=== PATIENT | female | born 1940 | race Caucasian/White ===

== ENCOUNTER 2021-08-04 14:13 | Inpatient (IN) | payer MEDICARE, BC ==
[~2021-08-04] VITALS: Ht 157.5 cm; Wt 72.0 kg
[2021-08-04] MEDS ORDERED: QUETIAPINE FUM100 M1 PO (15:32)
[2021-08-04] MEDS ORDERED: METFORMIN HYD1000 MG PO (15:33)
[2021-08-04] MEDS ORDERED: SYNTHROID0.05 MG PO (15:43)
[2021-08-04] MEDS ORDERED: NEURONTIN300 MG/CAP (15:44)
[2021-08-04] MEDS ORDERED: LEVEMIR FLEX100 U/ML SQ (15:45)
[2021-08-04] MEDS ORDERED: TRULICITY1.5 MG/0.5 SC (15:52)
[2021-08-04] MEDS ORDERED: FAMOTIDINE40 M1 PO (15:59)
[2021-08-04] MEDS ORDERED: RIVASTIGMINE1 EACH TD (16:00)
[2021-08-04] MEDS ORDERED: CELEXA 20MG20 MG/TA1 PO (16:04)
[2021-08-04] MEDS ORDERED: ATORVASTATIN CA40 MG PO (16:06)
[2021-08-04] MEDS ORDERED: CLOPIDOGREL75 M2 PO (16:06)
[2021-08-04] MEDS ORDERED: AMLODIPINE BES2.5 MG PO (16:08)
[2021-08-04] MEDS ORDERED: VITAMIN D21250 MCG PO (16:09)
[2021-08-04] MEDS ORDERED: ESTRADIOL42.5 GM VG (16:10)
[2021-08-04] MEDS ORDERED: FLUCONAZOLE150 MG PO (16:14)
[2021-08-04] MEDS ORDERED: LIDOCAINE 5%35.44 GM (16:15)
[2021-08-04] MEDS ORDERED: INSULIN AS100 UNIT/3 SQ (16:16)
[2021-08-04] MEDS ORDERED: LOW DOSE ASPIRI81 M1 PO (16:17)
[2021-08-04] MEDS ORDERED: ALPHA LIPOIC A600 MG PO (16:18)
[2021-08-04] MEDS ORDERED: CYANOCOBAL1000 MCG/1 IM (16:19)
[2021-08-04] MEDS ORDERED: ASACOL HD800 M1 PO (16:20)
[2021-08-04] MEDS ORDERED: SENNA8.6 M1 PO (16:21)
[2021-08-04 17:24] VITALS: BP 152/82
[2021-08-04 18:00] VITALS: BP 152/82
[2021-08-04 21:34] VITALS: BP 172/70
[2021-08-05 02:06] VITALS: BP 144/68
[2021-08-05 05:55] VITALS: BP 132/59
[2021-08-05 06:56] LABS: BASO # 0.03 K/mm3 (0.02-0.10); EOS # 0.17 K/mm3 (0.04-0.40); EOS % 2.5 % (1.0-5.0); HEMATOCRIT 32.7 % (37.0-47.0); HEMOGLOBIN 10.3 g/dL (12.5-16.0); LYMPH# 2.99 K/mm3 (1.50-4.00); MEAN CELL VOLUME 88 fl (78-100); MEAN CORPUSCULAR HEMOGLOBIN 28 pg (27-31); MEAN CORPUSCULAR HGB CONC 32 g/dL (33-37); MEAN PLATELET VOLUME 10.1 fl (7.4-10.4); MONO # 0.55 K/mm3 (0.20-0.80); NEU # 2.87 K/mm3 (1.40-6.50); PLATELET COUNT 269 K/mm3 (130-400); RED BLOOD COUNT 3.73 M/mm3 (4.10-5.30); RED CELL DISTRIBUTION WIDTH 14.6 % (11.5-14.5); WHITE BLOOD COUNT 6.8 K/mm3 (4.8-10.8)
[2021-08-05 07:39] LABS: ALBUMIN 2.9 g/dL (3.4-4.8); POTASSIUM 3.6 mmol/L (3.5-5.1)
[2021-08-05 07:41] LABS: TOTAL PROTEIN 5.8 g/dL (6.2-8.1)
[2021-08-05 07:43] LABS: TOTAL BILIRUBIN 0.3 mg/dL (0.2-1.2)
[2021-08-05 10:59] VITALS: BP 149/81
[2021-08-05 14:30] VITALS: BP 134/61
[2021-08-05 18:11] VITALS: BP 128/77
[2021-08-06 01:15] VITALS: BP 156/75
[2021-08-06 05:51] VITALS: BP 159/71
[2021-08-06 11:00] VITALS: BP 140/88
[2021-08-06 14:27] LABS: BASO # 0.04 K/mm3 (0.02-0.10); EOS # 0.22 K/mm3 (0.04-0.40); EOS % 2.8 % (1.0-5.0); HEMATOCRIT 33.7 % (37.0-47.0); HEMOGLOBIN 10.6 g/dL (12.5-16.0); LYMPH# 3.08 K/mm3 (1.50-4.00); MEAN CELL VOLUME 88 fl (78-100); MEAN CORPUSCULAR HEMOGLOBIN 28 pg (27-31); MEAN CORPUSCULAR HGB CONC 32 g/dL (33-37); MEAN PLATELET VOLUME 9.9 fl (7.4-10.4); MONO # 0.55 K/mm3 (0.20-0.80); NEU # 3.74 K/mm3 (1.40-6.50); PLATELET COUNT 343 K/mm3 (130-400); RED BLOOD COUNT 3.83 M/mm3 (4.10-5.30); RED CELL DISTRIBUTION WIDTH 14.8 % (11.5-14.5)
[2021-08-06 14:37] LABS: ALBUMIN 3.2 g/dL (3.4-4.8); POTASSIUM 4.1 mmol/L (3.5-5.1)
[2021-08-06 14:38] LABS: CALCIUM 8.6 mg/dL (8.3-10.5)
[2021-08-06 14:40] LABS: TOTAL PROTEIN 6.5 g/dL (6.2-8.1)
[2021-08-06 14:42] LABS: TOTAL BILIRUBIN 0.2 mg/dL (0.2-1.2)
[2021-08-06 14:45] VITALS: BP 150/72
[2021-08-06 18:03] VITALS: BP 169/79
[2021-08-07 02:00] VITALS: BP 134/82
[2021-08-07 06:36] VITALS: BP 158/69
[2021-08-07 10:04] VITALS: BP 147/74
[2021-08-07 14:01] VITALS: BP 162/83
[2021-08-07 18:20] VITALS: BP 179/79
[2021-08-07 22:04] VITALS: BP 160/77
[2021-08-08 02:42] VITALS: BP 137/76
[2021-08-08 06:10] VITALS: BP 137/75
[2021-08-08 07:47] LABS: BASO # 0.04 K/mm3 (0.02-0.10); EOS # 0.41 K/mm3 (0.04-0.40); EOS % 4.7 % (1.0-5.0); HEMOGLOBIN 11.3 g/dL (12.5-16.0); LYMPH# 3.15 K/mm3 (1.50-4.00); MEAN CELL VOLUME 88 fl (78-100); MEAN CORPUSCULAR HEMOGLOBIN 28 pg (27-31); MEAN CORPUSCULAR HGB CONC 31 g/dL (33-37); MEAN PLATELET VOLUME 9.8 fl (7.4-10.4); MONO # 0.64 K/mm3 (0.20-0.80); NEU # 3.95 K/mm3 (1.40-6.50); PLATELET COUNT 425 K/mm3 (130-400); RED BLOOD COUNT 4.11 M/mm3 (4.10-5.30); RED CELL DISTRIBUTION WIDTH 14.7 % (11.5-14.5); WHITE BLOOD COUNT 8.7 K/mm3 (4.8-10.8)
[2021-08-08 07:59] LABS: POTASSIUM 4.5 mmol/L (3.5-5.1)
[2021-08-08 08:00] LABS: CALCIUM 9.3 mg/dL (8.3-10.5)
[2021-08-08 08:02] LABS: URINE APPEARANCE HAZY; URINE COLOR YELLOW
[2021-08-08 08:03] LABS: URINE BILIRUBIN NEGATIVE (NEGATIVE); URINE BLOOD NEGATIVE (NEGATIVE); URINE GLUCOSE NEGATIVE (NEGATIVE); URINE KETONE NEGATIVE (NEGATIVE); URINE LEUKOCYTE ESTERASE 1+ (NEGATIVE); URINE NITRATE NEGATIVE (NEGATIVE); URINE PROTEIN(semi-quant) 1+ mg/dL (NEGATIVE); URINE UROBILINOGEN NORMAL (NORMAL); URINE WBC 31-50 /hpf (0-3)
[2021-08-08 10:00] VITALS: BP 131/78
[2021-08-08 14:00] VITALS: BP 158/78
[2021-08-08 18:00] VITALS: BP 134/78
[2021-08-08 21:58] VITALS: BP 146/76
[2021-08-09 02:09] VITALS: BP 133/69
[2021-08-09 06:21] VITALS: BP 124/71
[2021-08-09 09:49] VITALS: BP 121/75
[2021-08-09 13:36] VITALS: BP 154/78
[2021-08-09] MEDS ORDERED: MORGIDOX 1X100100 MG PO (16:15)
[2021-08-09] MEDS ORDERED: CEPHALEXIN500 M1 PO (16:15)
[2021-08-09 17:31] VITALS: BP 134/72
== END 2021-08-09 18:12 | disposition home health service (06) | DRG 139 ==
LOC: MED/SURG 14:13
PROVIDERS: Family Medicine; Nurse Practitioner; ADMIT Physician Assistant
DX: J18.9 Pneumonia, unspecified organism (principal); N39.0 Urinary tract infection, site not specified; R53.81 Other malaise; E46 Unspecified protein-calorie malnutrition; E11.9 Type 2 diabetes mellitus without complications; Z79.4 Long term (current) use of insulin; I25.10 Atherosclerotic heart disease of native coronary artery without angina pectoris; Z95.5 Presence of coronary angioplasty implant and graft; G20 Parkinson's disease; F02.80 Dementia in other diseases classified elsewhere, unspecified severity, without behavioral disturbance, psychotic disturbance, mood disturbance, and anxiety; F41.8 Other specified anxiety disorders; E03.9 Hypothyroidism, unspecified; Z66 Do not resuscitate; Z79.899 Other long term (current) drug therapy; K51.80 Other ulcerative colitis without complications; Z79.82 Long term (current) use of aspirin
CPT/HCPCS: J0696; J1650; J1815; J7030